=== PATIENT | male | born 1950 | race Caucasian/White ===

== ENCOUNTER → 2019-02-11 | Outpatient (CLI) | payer MEDICARE, OTHER ==
[~2019-02-11] MED LIST: ALDACTONE25 MG PO; APAP650 PO; ASPIRIN81 M2 PO; ATORVASTATIN CA40 MG PO; BRILINTA90 MG PO; NITROGLYCERIN0.4 MG SUBLING; PREDNISONE 10 M10 M1 PO; PROAIR HFA8.5 GM INH
--- NOTE | 2019-02-11 15:31 | CARDNUC ---
[place] [address] CARDIAC NUCLEAR IMAGING REPORT Name: LEROY CHRISTIE Room: [facility]#: [id number] Admission: 02/11/19 Attend Phys: Jennifer Arita Discharge: Date of : 50 Date of Service: 02/11/19 1530 Report #: [id number] THIS REPORT FOR: //name// APPROVED REPORT Study performed: 02/11/2019 10:10:09 Exam: Nuclear Stress Test Indication: Acute Non ST elevation Myocardial Infarction Patient Location: Out-Patient Stress Tech: Suzanna Villegas Stress Nurse: Zhanna Singh RN Ht: 5 ft 4 in Wt: 174 lbs BSA: 1.84 m2 BMI: 29.86 Medical History Medical History: mi, cad, pci, Medications: prasugel, atorvastatin, metoprolol, asa-81 Allergies: nkda Cardiac Risk Factors: age Previous Cardiac Procedures: pci Exercise History: Physically active Meds Held (24 hrs): metoprolol Stress Test Details Stress Test: Pharmacologic stress testing performed using 0.4 mg of regadenoson per 5 mL given IV over 10 seconds. Reason for pharmacologic stress test: LBBB. HR Resting HR: 66 bpm Max Heart Rate (APMHR): 152 bpm Max HR Achieved: 83 bpm Target HR (85% APMHR): 129 bpm % of APMHR: 54 Recovery HR: 55 bpm HR response to stress: Normal HR response to stress BP Resting BP: 133/92 mmHg Max BP: 128/85 mmHg BP response to stress: Normal blood pressure response to stress. ECG Resting ECG: [place] [address] CARDIAC NUCLEAR IMAGING REPORT Name: LEROY CHRISTIE Room: [facility]#: [id number] Admission: 02/11/19 Attend Phys: Jennifer Arita Discharge: Date of : 50 Date of Service: 02/11/19 1530 Report #: [id number] Stress ECG: nsr ST Change: none Arrhythmia: none Recovery ECG: nsr Recovery ST Change: none Recovery Arrhythmia: none Clinical Reason for Termination: Completed protocol Stress Symptoms: None Stress ECG Conclusion negative ecg NM EXAM: Myocardial Perfusion REST/STRESS Resting Data Rest SPECT myocardial perfusion imaging was performed in supine position 30 minutes following the intravenous injection of 11.2 mCi of Tc-99m Sestamibi. Time of rest injection: 08:45 The images were gated to evaluate regional wall motion and calculate left ventricular ejection fraction. Administration Route: IV Administration Site: Right AC Pharmacologic Stress Pharmacologic stress test was performed by injecting Regadenoson 0.4 mg IV push followed by the intravenous injection of 33.7 mCi of Tc-99m Sestamibi. Time of stress injection: 10:15 Administration Route: IV Administration Site: Right AC Heart Rate at time of stress injection: 76 bpm. Gated Stress SPECT was performed 45 minutes after stress injection. The images were gated to evaluate regional wall motion and calculate left ventricular ejection fraction. Prone imaging was performed. Study Quality Study: Good Artifact: No artifact Lung Uptake: [place] [address] CARDIAC NUCLEAR IMAGING REPORT Name: SHAHNAZLEROY RICH Room: [facility]#: [id number] Admission: 02/11/19 Attend Phys: Jennifer Arita Discharge: Date of : 50 Date of Service: 02/11/19 1530 Report #: [id number] At rest, the left ventricular ejection fraction was 47%.. Post stress, the left ventricular ejection was 48%.. SSS: 9 SRS: 6 SDS: 3 Perfusion Review of SPECT images at rest reveal a medium sized, moderate to severe intensity mid to distal anterior, septal and apical perfusion defect,and normal perfusion in all other segments. Images after vasodilator stress show that this defect is fixed, without significant periinfarct ischemia. This is compatible with an anterior NM. Images were reviewed using Truminim. Wall Motion anterior hypokinesis, LV chamber volume very mildly elevated Nuclear Conclusion ECG Findings: negative for ischemia Clinical Findings: negative for ischemia Nuclear Findings: negative for ischemia Exercise Capacity: not assessed Left Ventricular Function: abnormal Risk Study: moderate Evidence of a prior moderate sized anterior NM, No significant residual ischemia. EF mildly reduced. <Conclusion> negative ecg <ELECTRONICALLY SIGNED> By: José Miguel Barajas MD, FAC 02/11/19 1530 153 [id number] José Miguel Barajas MD, FACC /INF
== END ==
LOC: M.NUC 08-16 17:04
DX: I25.10 Atherosclerotic heart disease of native coronary artery without angina pectoris (principal); I21.02 ST elevation (STEMI) myocardial infarction involving left anterior descending coronary artery; Z98.890 Other specified postprocedural states

== ENCOUNTER → 2019-08-01 | Outpatient (CLI) | payer MEDICARE, OTHER ==
--- NOTE | 2019-08-01 13:01 | 2DMMODE ---
[place] [address] 2 D/M-MODE ECHOCARDIOGRAM Name: LEROY CHRISTIE Room: [facility]#: [id number] Admission: 08/01/19 Attend Phys: Jennifer Arita Discharge: Date of : 50 Date of Service: 08/01/19 1301 Report #: [id number] THIS REPORT FOR: //name// APPROVED REPORT Study performed: 08/01/2019 07:54:32 EXAM: Comprehensive 2D, Doppler, and color-flow Echocardiogram Patient Location: Out-Patient BSA: 1.85 HR: 53 bpm BP: 118/75 mmHg Other Information Study Quality: Good Indications CAD Cardiomyopathy 2D Dimensions IVSd: 12.93 (7-11mm) LVOT Diam: 20.59 (18-24mm) LVDd: 44.73 mm PWd: 11.02 (7-11mm) Ascending Ao: 37.57 (22-36mm) LVDs: 34.40 (25-40mm) Aortic Root: 31.18 mm Volumes Left Atrial Volume (Systole) LA ESV Index: 22.20 mL/m2 Aortic Valve AoV Peak Fabio.: 1.08 m/s AO Peak Gr.: 4.63 mmHg LVOT Max P.95 mmHg AO Mean Gr.: 2.50 mmHg LVOT Mean P.03 mmHg LVOT Max V: 0.70 m/s AO V2 VTI: 23.22 cm LVOT Mean V: 0.47 m/s JOCELYNN (VTI): 2.45 cm2 LVOT V1 VTI: 17.11 cm Mitral Valve E/A Ratio: 0.86 MV Decel. Time: 250.70 ms MV E Max Fabio.: 0.53 m/s MV PHT: 72.70 [place] [address] 2 D/M-MODE ECHOCARDIOGRAM Name: LEROY CHRISTIE Room: [facility]#: [id number] Admission: 08/01/19 Attend Phys: Jennifer Arita Discharge: Date of : 50 Date of Service: 08/01/19 1301 Report #: [id number] MVA (PHT): 3.03 cm2 TDI E/Lateral E': 7.57 E/Medial E': 8.83 Medial E' Fabio.: 0.06 m/s Lateral E' Fabio.: 0.07 m/s Pulmonary Valve PV Peak Fabio.: 0.88 m/s PV Peak Gr.: 3.10 mmHg Tricuspid Valve RAP Estimate: 5.00 mmHg TR Peak Gr.: 18.72 mmHg RVSP: 23.72 mmHg PA Pressure: 23.72 mmHg Left Ventricle The left ventricle is normal size. akinesis noted of the distal anteroseptal wall and apex There is normal left ventricular wall thickness. Left ventricular systolic function is mildly decreased. LVEF is 45-50%. Grade I - abnormal relaxation pattern. Right Ventricle The right ventricle is normal size. The right ventricular systolic function is normal. Atria The left atrium size is normal. The right atrium size is normal. Aortic Valve Aortic valve is mildly calcified. Mild aortic regurgitation. There is no aortic valvular stenosis. Mitral Valve The mitral valve is normal in structure. Mild mitral regurgitation. No evidence of mitral valve stenosis. Tricuspid Valve The tricuspid valve is normal in structure. Mild tricuspid regurgitation. Pulmonic Valve The pulmonary valve is normal in structure. There is no pulmonic valvular regurgitation. [place] [address] 2 D/M-MODE ECHOCARDIOGRAM Name: LEROY CHRISTIE [id number] Admission: 08/01/19 Attend Phys: Jennifer Arita Discharge: Date of : 50 Date of Service: 08/01/19 1301 Report #: [id number] The aortic root is normal in size. IVC is normal in size and collapses >50% with inspiration. Pericardium There is no pericardial effusion. <Conclusion> LVEF is 45-50%. akinesis noted of the distal anteroseptal wall and apex Aortic valve is mildly calcified. Mild aortic regurgitation. Mild mitral regurgitation. <ELECTRONICALLY SIGNED> By: Abhinav Aiken MD, FACC 08/01/19 130 00 00 Abhinav Aiken MD, FACC /INF
== END ==
LOC: M.CRD 07:50
DX: I08.3 Combined rheumatic disorders of mitral, aortic and tricuspid valves (principal); I21.02 ST elevation (STEMI) myocardial infarction involving left anterior descending coronary artery

== ENCOUNTER 2020-01-27 20:16 | Emergency (ER) | payer MEDICARE, OTHER ==
[~2020-01-27] VITALS: Ht 162.6 cm; Wt 78.0 kg
[2020-01-27] MEDS ORDERED: TOPROL XL25 MG PO (20:30)
[2020-01-27] MEDS ORDERED: EFFIENT10 MG PO (20:31)
[2020-01-27 20:50] LABS: ABSOLUTE EOSINOPHILS 0.1 thou/uL (0.0-0.7); ABSOLUTE LYMPHOCYTES 2.4 thou/uL (0.8-5.3); ABSOLUTE MONOCYTES 0.5 thou/uL (0.0-1.2); ABSOLUTE NEUTROPHILS 3.1 thou/uL (1.6-8.1); BASOPHILS 0.5 %; EOSINOPHILS 1.6 %; HEMATOCRIT 45.8 % (42.0-52.0); HEMOGLOBIN 16.1 gm/dL (14.0-18.0); LYMPHOCYTES 39.2 %; MCH 32.4 pg (26.0-34.0); MCHC 35.1 g/dL (28.0-37.0); MCV 92.1 fL (80.0-100.0); MONOCYTES 8.2 %; MPV 9.2 fl. (7.2-11.1); NUCLEATED RBCS 0 /100WBC; PLATELET COUNT* 124 thou/uL (150-400); POLYS 50.5 %; RBC 4.97 mil/uL (4.50-6.00); WBC 6.2 thou/uL (4.0-11.0)
[2020-01-27 20:59] LABS: CALCIUM 8.5 mg/dL (8.5-10.1); CREATININE 1.4 mg/dL (0.6-1.3); POTASSIUM 3.9 mmol/L (3.5-5.1)
[2020-01-27 21:04] LABS: ALBUMIN 3.4 g/dL (3.4-5.0); TOTAL BILIRUBIN 0.5 mg/dL (<0.1-1.0); TOTAL PROTEIN 6.8 g/dL (6.4-8.2)
[2020-01-27 22:36] VITALS: BP 106/68
--- NOTE | 2020-01-28 11:19 | EKG ---
[place] [address] ELECTROCARDIOGRAM REPORT Name: LEROY CHRISTIE Room: [facility]#: [id number] Admission: 01/27/20 Attend Phys: Discharge: 01/27/20 Date of : 50 Date of Service: 01/27/202034 Report #: [id number] THIS REPORT FOR: //name// [facility] ED Test Date: 2020-01-27 Test Time: 20:35:25 Pat Name: LEROY CHRISTIE Department: Room: Gender: Incident Analyst: JOYCE : 1950 Requested By: Sudhir Small Order Number: [id number] MD: Abhinav Aiken Measurements Intervals [place] Rate: 51 P: 41 GA: 172 QRS: -7 QRSD: 97 T: 113 QT: 443 QTc: 409 Interpretive Statements Sinus bradycardia Anteroseptal infarct, age indeterminate Lateral leads are also involved Compared to ECG 12/27/2016 07:36:59 No significant changes Electronically Signed On 01-28-2020 11:17:44 CDT by Abhinav Aiken [email or web address] <ELECTRONICALLY SIGNED> By: Abhinav Aiken MD, FAC 01/28/20 1117 34 34 Abhinav Aiken MD, [facility] /EPI
== END 2020-01-27 22:37 | disposition home or self-care (01) ==
LOC: M.ERS 20:16
PROVIDERS: Family Medicine
DX: R06.6 Hiccough (principal); E78.00 Pure hypercholesterolemia, unspecified

== ENCOUNTER 2021-01-06 11:16 | Emergency (ER) | payer MEDICARE, OTHER ==
[~2021-01-06] VITALS: Ht 162.6 cm; Wt 76.2 kg
[~2021-01-06 11:16] MED LIST changes: +EFFIENT10 MG PO; +TOPROL XL25 MG PO
[2021-01-06 12:26] VITALS: BP 121/79
== END 2021-01-06 12:28 | disposition home or self-care (01) ==
LOC: M.ERS 11:16
DX: R04.0 Epistaxis (principal); E78.00 Pure hypercholesterolemia, unspecified

== ENCOUNTER → 2021-02-26 | Outpatient (CLI) | payer MEDICARE, OTHER ==
[~2021-02-26] MED LIST changes: +METOPROLOL TART25 MG PO
--- NOTE | 2021-02-26 15:44 | CARDNUC ---
[place] [address] CARDIAC NUCLEAR IMAGING REPORT Name: LEROY CHRISTIE Room: [facility]#: [id number] Admission: 02/26/21 Attend Phys: Jennifer Arita Discharge: Date of : 50 Date of Service: 02/26/21 1543 Report #: [id number] THIS REPORT FOR: cc: Jose Duarte Bradley L. DO Liston, Michael J. MD [facility] ~ APPROVED REPORT Imaging Protocol: Stress Tc-99m/Rest Tc-99m 1 day Study performed: 02/26/2021 09:15:00 Indication: CAD s/p NH, CAD s/p PCI, ISCHEMIC CARDIOMYOPATHY. Patient Location: Out-Patient Stress Tech: Suzanna Villegas Stress Nurse: Ramonita Jenkins RN Ht: 5 ft 4 in Wt: 170 lbs BSA: 1.83 m2 HR: 51 bpm BP: 131/93 mmHg BMI: 29.17 Medical History Medical History: Angina, CAD s/p NH, CAD s/p stent, Cardiomyopathy, Fatigue, Hyperlipidemia, HX ST ELEVATION, PURE HYPERCHOLESTEROLEMIA, DIAPHORESIS. Medications: ATORVASTATIN, METOPROLOL TARTRATE, NTG, EFFIENT. Allergies: NKDA Cardiac Risk Factors: Age, Hyperlipidemia, HX NH, HX PCI. Previous Cardiac Procedures: PCI, Myocardial infarction,CAD Pretest Chest Pain Characteristics: No chest pain Exercise History: Physically active Physical Disabilities: KNEE PAIN. Meds Held (24 hrs): METOPROLOL, NTG. Stress Test Details Stress Test: Exercise stress testing was performed using a Mauri protocol. HR Max Heart Rate (APMHR): 150 bpm Resting HR: 51 bpm Target HR (85% APMHR): 127 bpm Max HR Achieved: 154 bpm % of APMHR: 102 Recovery HR: 84 [place] [address] CARDIAC NUCLEAR IMAGING REPORT Name: LEROY CHRISTIE Room: [facility]#: [id number] Admission: 02/26/21 Attend Phys: Jennifer Arita Discharge: Date of : 50 Date of Service: 02/26/21 1543 Report #: [id number] Resting BP: 131/93 mmHg Max BP: 151/86 mmHg Recovery BP: 131/89 mmHg ECG Resting ECG: Sinus Rhythm Stress ECG: Sinus Tachycardia ST Change: None Arrhythmia: None Recovery ECG: Sinus Rhythm Recovery ST Change: None Recovery Arrhythmia: None Clinical Reason for Termination: Completed protocol, Maximal effort, TARGET HR ACHIEVED. Stress Symptoms: DYSPNEA, TIGHTNESS BETWEEN BACK SHOULDER BLADES, RIGHT SHOULDER TIGHTNESS, LIGHTHEADEDNESS. Exercise duration: 10 min 00 sec Exercise capacity: 11.77 METs Overall Exercise Capacity for Age: Superior The patient tolerated standard Mauri protocol exercise without significant cardiac symptoms. Nurse Comments A 70 YEAR OLD MALE PRESENTED FOR A TREADMILL NUCLEAR STRESS TEST. TREADMILL TOLERATED TO STAGE 4. TARGET HR ACHIEVED. RECOVERY UNREMARKABLE. PATIENT WAS STABLE AND STATED HE FELT GOOD WHEN ESCORTED TO NUCLEAR MEDICINE FOR IMAGING. EXERCISE CAPACITY - SUPERIOR. Stress ECG Conclusion The baseline twelve-lead EKG shows sinus rhythm without significant ST segment or T wave abnormality. EKGs obtained during and post exercise show sinus rhythm and sinus tachycardia with no significant ST segment or T wave changes when compared to baseline. There were no stress-induced arrhythmias. Study Quality Study: Good Artifact: No artifact Study Data At rest, the left ventricular ejection fraction was 46%.. Post stress, the left ventricular ejection was 41%.. TID = 0.92. [place] [address] CARDIAC NUCLEAR IMAGING REPORT Name: LEROY CHRISTIE [id number] Admission: 02/26/21 Attend Phys: Jennifer Arita Discharge: Date of : 50 Date of Service: 02/26/21 1543 Report #: [id number] Perfusion Perfusion images obtained at rest and post exercise stress show a large in size severe intensity fixed defect involving the mid to apical anterior wall and apex. No reversible defects were identified. Wall Motion LV systolic function appears to be mildly decreased. There is areas of hypokinesis and akinesis involving the distal to apical anterior wall and mid to apical portions of the septum as well as apex. Nuclear Conclusion ECG Findings: negative for ischemia Clinical Findings: negative for ischemia Nuclear Findings: negative for ischemia Exercise Capacity: normal Left Ventricular Function: abnormal Perfusion images show no defect to suggest ischemia. There is a fixed defect involving the mid to apical anterior and anteroseptal wall consistent with prior infarct. Global LV systolic function appears mildly decreased. This is not a high risk study. <Conclusion> The baseline twelve-lead EKG shows sinus rhythm without significant ST segment or T wave abnormality. EKGs obtained during and post exercise show sinus rhythm and sinus tachycardia with no significant ST segment or T wave changes when compared to baseline. There were no stress-induced arrhythmias. <ELECTRONICALLY SIGNED> By: Thiago Randall MD, FACC 02/26/21 1543 1543 1543 Thiago Randall MD, FACC /INF
== END ==
LOC: M.NUC → M.CRD 09:00 → M.NUC 09:20
PROVIDERS: ATTEND Internal Medicine
DX: I25.10 Atherosclerotic heart disease of native coronary artery without angina pectoris (principal); I25.5 Ischemic cardiomyopathy; I10 Essential (primary) hypertension; E78.5 Hyperlipidemia, unspecified; E78.00 Pure hypercholesterolemia, unspecified; I25.2 Old myocardial infarction; I51.7 Cardiomegaly; R61 Generalized hyperhidrosis; Z95.2 Presence of prosthetic heart valve; Z95.5 Presence of coronary angioplasty implant and graft